=== PATIENT | female | born 1960 | race African-American/Black ===

== ENCOUNTER → 2017-12-30 | Outpatient (CLI) | payer OTHER ==
[~2017-12-30] MED LIST: ALPRAZOLAM 0.50.5 M1 PO; ATIVAN0.5 MG PO; BUDEPRION SR150 MG PO; CEPHALEXIN 500500 M2 PO; HYDROCODON-ACE1 EAC5 PO; IBUPROFEN200 M2 PO; IRON; LIDODERM 5%1 PATCH TOP; LYSINE PO; NEURONTIN 300300 M1 PO; NORCO 5-325 TA1 EACH PO; PAXIL CR25 MG PO; PHENERGAN 25 MG25 M1 PO; PREDNISONE 5 MG5 MG PO; PREVACID15 MG PO; VALACYCLOVIR1000 MG PO; VITAMIN B-12100 MC1
== END ==
LOC: M.RAD 09:53
DX: Z12.31 Encounter for screening mammogram for malignant neoplasm of breast (principal)

== ENCOUNTER → 2018-10-02 | Outpatient (CLI) | payer BC | LOC: M.MRI 10:55 | DX: M51.16 Intervertebral disc disorders with radiculopathy, lumbar region (principal); M12.88 Other specific arthropathies, not elsewhere classified, other specified site; M48.062 Spinal stenosis, lumbar region with neurogenic claudication; M51.27 Other intervertebral disc displacement, lumbosacral region; M47.26 Other spondylosis with radiculopathy, lumbar region; M51.37 Other intervertebral disc degeneration, lumbosacral region; M48.07 Spinal stenosis, lumbosacral region ==